=== PATIENT | female | born 1935 | race Caucasian/White ===

== ENCOUNTER 2022-08-08 14:55 | Emergency (ER) | payer MEDICARE ==
[~2022-08-08] VITALS: Ht 157.5 cm; Wt 63.5 kg
[2022-08-08] MEDS ORDERED: ACETAMINOPHEN 500 MG TABLET PO ONE (16:30)
[2022-08-08] MEDS ORDERED: KETOROLAC 60 MG VIAL (30MG/ML) IM ONE (16:30)
[2022-08-08] MEDS ORDERED: ACET-2113 PO (16:30)
[2022-08-08 17:17] VITALS: BP 156/89
== END 2022-08-08 17:17 | disposition home or self-care (01) ==
LOC: EDH 14:55
DX: M25.431 Effusion, right wrist (principal); M13.88 Other specified arthritis, other site; M25.512 Pain in left shoulder; E78.00 Pure hypercholesterolemia, unspecified; I10 Essential (primary) hypertension; Z79.1 Long term (current) use of non-steroidal anti-inflammatories (NSAID); W01.0XXA Fall on same level from slipping, tripping and stumbling without subsequent striking against object, initial encounter; Y93.89 Activity, other specified; Y92.89 Other specified places as the place of occurrence of the external cause; Y99.8 Other external cause status
CPT/HCPCS: 99284; 73030; 73110; 96372; J1885